=== PATIENT | male | born 1985 | race Caucasian/White ===

== ENCOUNTER 2018-12-16 22:20 | Emergency (ER) | payer MEDICAID, OTHER ==
[~2018-12-16] VITALS: Ht 165.1 cm; Wt 93.9 kg
[2018-12-16 22:23] VITALS: Ht 165.1 cm; Wt 93.9 kg
[2018-12-17] MEDS ORDERED: KETOROLAC 30 MG INJ IM STA (00:54)
--- NOTE | 2018-12-17 01:31 | ERD ---
ER Documentation Chief Complaint Chief Complaint R KNEE PAIN X'S 7 DAYS; NOW R LEG SWOLLEN FROM KNEE TO ANKLE HPI 33-year-old male with no reported past medical or surgical history who presents with 7-day complaint of right lower extremity pain and swelling. 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 With pain, worsening swelling of right lower extremity most prominent at right knee not extending to mid calf. He denies any falls or recent injury. Works as a wildlife science professor but denies any exposure to any allergens or delicatessen department manager to toxins. Denies prior rash or blister to area of symptoms. He denies recent travel. He otherwise denies chest pain, shortness of breath, dyspnea, fever, chills, nausea, vomiting, diarrhea, abdominal pain, urinary symptoms. ROS All systems reviewed and are negative except as per history of present illness. Medications Home Meds Active Scripts Naproxen* (Naprosyn*) 500 Mg Tablet, 500 MG PO BID PRN for PAIN AND/OR INFLAMMATION, #30 TAB Prov:BRITT ZALDIVAR PA-C 12/17/18 Allergies Allergies: Coded Allergies: No Known Allergy (Unverified , 12/16/18) PMhx/Soc Medical and Surgical Hx: pt denies Medical Hx, pt denies Surgical Hx Hx Alcohol Use: No Hx Substance Use: No Hx Tobacco Use: No Smoking Status: Former smoker FmHx Family History: No diabetes, No coronary disease, No other Physical Exam Vitals Vital Signs Date Temp Pulse Resp B/P (MAP) Pulse Ox O2 O2 Flow FiO2 Time Delivery Rate 12/17/18 98.1 69 18 121/86 99 Room Air 03:30 (98) 12/16/18 98.5 94 20 143/83 97 22:23 (103) Physical Exam I have reviewed the triage vital signs. Const: Well nourished, well developed, appears stated age Eyes: PERRL, no conjunctival injection HENT: NCAT, Neck supple without meningismus CV: RRR, Warm, well-perfused extremities RESP: CTAB, Unlabored respiratory effort GI: soft, non-tender, non-distended, no masses MSK: No gross deformities appreciated Lower Extremity - Rightl: Skin: No laceration Compartments: Soft Motor: Full active range of motion of knee but with some reported pain worse on flexion, full range of motion to hip/ankle/foot Sensation: Intact to light touch FDWS/MF/LF/P surfaces. Bones: Tenderness to medial aspect of R knee, Nontender pelvis/proximal tibia/ malleoli/foot Joints: mild effusion to medial R knee or laxity Pulses/Perfusion: 2+ DP, Capillary refill < 2 seconds Skin: Warm, dry. No rashes Neuro: grossly non focal Psych: Appropriate mood and affect. Results 24 hrs Current Medications Medications Dose Sig/Mike Start Time Status Last (Trade) Ordered Route PRN Stop Time Admin Dose Reason Admin Ketorolac 30 mg ONCE STAT 12/17/18 DC 12/17/18 Tromethamine IM 00:54 01:06 (Toradol) 12/17/18 00:58 Procedures/MDM 33-year-old healthy male who presents with complaint of right lower extremity pain, primarily right knee pain. No reported trauma or injury or environmental exposures. Patient is afebrile. Doubt acute fracture dislocation of knee given history and exam. Neurovascularly intact distally. Given focal tenderness, query possible MCL strain vs bursitis. No systemic symptoms and nontoxic; given exam and history, low suspicion for septic arthritis, pyomyositis or necrotizing fascitis. No e/o compartment syndrome or DVT. ED course/plan: Ultrasound of right lower extremity without acute finding X-ray of right knee without acute fracture or dislocation Pain control We will discharge with appropriate pain control and follow-up with PMD, strict r eturn precautions explained in detail Referral to clinic to establish primary care DISPOSITION PLAN: We discussed follow up with the patient's primary care doctor within 24 to 48 hours. Patient counseled regarding my diagnostic impression and care plan. Prior to discharge all questions answered. Pt agrees with treatment plan and understands strict return precautions. Precautionary instructions provided including instructions to return to the ER if not improving or for any worsening or changing symptoms or concerns. Disclaimer: Inadvertent spelling and grammatical errors are likely due to EHR/dictation software use and do not reflect on the overall quality of patient care. Also, please note that the electronic time recorded on this note does not necessarily reflect the actual time of the patient encounter. Departure Diagnosis: Primary Impression: Pain of right leg Condition: Stable BRITT ZALDIVAR PA-C December 17, 2018 01:31
[2018-12-17] MEDS ORDERED: NAPR-985 PO (01:34)
[2018-12-17 03:30] VITALS: BP 121/86; PULSE 69; RESP 18
== END 2018-12-17 03:51 | disposition home or self-care (01) ==
LOC: FTE 22:20
DX: M25.561 Pain in right knee (principal); Z87.891 Personal history of nicotine dependence
CPT/HCPCS: 73562; 93971; 96372; J1885; Z7502